=== PATIENT | male | born 1990 | race Caucasian/White ===

== ENCOUNTER 2019-04-23 10:04 | Emergency (ER) | payer OTHER ==
[2019-04-23 10:15] VITALS: BP 131/88
[2019-04-23] MEDS ORDERED: Ketorolac INJ* 30 MG/ML 1 ML VIAL IM ONE (10:29)
--- NOTE | 2019-04-23 10:34 | UC ---
General HPI - HPI Summary HPI Summary: Here with Father - Patient has bipolar disorder. He lives with his dad but independent of ADLs. States he has had issues with diffuse headache over the past month. Headache all over and radiates to his cheeks and jaw on both sides. States he is having dental issues and is planning to see a dentist for this. States pain fluctuates throughout the day where he is fine then it is terrible. has photophobia and phonophobia sometimes. Has been taking tylenol as needed with no improvement. denies any sinus congestion or allergy symptoms. No fever. No N/V/. No URI symptoms. No numbness or tingling. No vision changes. Meds; reviewed. Patient only got 4 hours of sleep. Often sleeps from 8-1 then is up till about 5 am then sleeps again - History of Current Complaint Chief Complaint: UCHeadache Stated Complaint: HEADACHE JAW/NECK PAIN Time Seen by Provider: 04/23/19 10:08 Pain Intensity: 7 - Allergy/Home Medications Allergies/Adverse Reactions: Allergies Allergy/AdvReac Type Severity Reaction Status Date / Time No Known Allergies Allergy Verified 04/23/19 10:15 Home Medications: Home Medications FLUoxetine CAP* [PROzac CAP*] 40 mg PO DAILY 04/23/19 [History Confirmed ] Levothyroxine TAB* [Synthroid TAB*] 75 mcg PO DAILY 04/23/19 [History Confirmed 04/23/19] [place] Carbonate ER TAB* 450 mg PO BID 04/23/19 [History Confirmed 04/23/19] QUEtiapine TAB* [Seroquel 300 MG TAB*] 300 mg PO BID 04/23/19 [History Confirmed 04/23/19] Zolpidem TAB* [Ambien TAB*] 10 mg PO BEDTIME PRN 04/23/19 [History Confirmed ] clonazePAM TAB(*) [KlonoPIN TAB(*)] 2 mg PO TID PRN 04/23/19 [History Confirmed 04/23/19] PMH/Surg Hx/FS Hx/Imm Hx Previously Healthy: Yes - Surgical History Surgical History: Yes Surgery Procedure, Year, and Place: [email or web address] 02/2019 - Social History Alcohol Use: None Substance Use Type: None Smoking Status (MU): Heavy Every Day Tobacco Smoker Type: Cigarettes Amount Used/How Often: 1/2 ppd Review of Systems All Other Systems Reviewed And Are Negative: Yes Physical Exam Triage Information Reviewed: Yes Appearance: Well-Appearing Vital Signs: Initial Vital Signs Temp 98.1 F 04/23/19 10:09 Pulse 65 04/23/19 10:09 Resp 16 04/23/19 10:09 BP 131/88 04/23/19 10:09 Pulse Ox 100 04/23/19 10:09 Vital Signs Reviewed: Yes ENT: Positive: Normal ENT inspection Neck: Positive: Supple Respiratory: Positive: Lungs clear Cardiovascular: Positive: RRR, No Murmur Neurological: Positive: Alert Psychological: Positive: Normal Response To Family Skin Exam: Normal Course/Dx - Course Course Of Treatment: This is a 28 year old with PMhx of bipolar disorder here with a headache Assessment Toradol 30 mg IM given x 1 Most likely migraine - less likely neurologic like tic delareux Plan Recommend management for migraine type headache Recommend ibuprofen 800 mg every 6 -8 hours - take with food Recommend follow up with the dentist If symptoms persist or worsen, recommend further evaluation with PCP or return to urgent care Recommend improvement in sleep hygiene - Diagnoses Provider Diagnosis: Migraine headache Discharge - Sign-Out/Discharge Documenting (check all that apply): Patient Departure All imaging exams completed and their final reports reviewed: No Studies - Discharge Plan Condition: Fair Disposition: HOME Patient Education Materials: Migraine Headache (ED) Additional Instructions: Recommend management for migraine type headache Recommend ibuprofen 800 mg every 6 -8 hours - take with food Recommend follow up with the dentist If symptoms persist or worsen, recommend further evaluation with PCP or return to urgent care Recommend improvement in sleep hygiene - Billing Disposition and Condition Condition: FAIR Disposition: Home
--- OUTSIDE RECORDS SUMMARY | 2019-04-23 10:38 | XMS REPORT | Continuity of Care Document ---
:1990 External Reference #:[id number] Author Name BradyJohn sanchezie Care Team Providers Name Role Phone Corey Sellers MD Primary Care Physician Unavailable Payers Date Identification Numbers Payment Provider Subscriber Effective: 2016 Policy Number: [id number] Richard Gamez PayID: [id number] [address] [place] [address] Family History Date Family Member(s) Observation Comments General Diabetes Type II General Heart Disease General Hypertension General Stroke General Cancer Father Alive And Well Mother Alive And Well Social History Type Date Description Comments Sex Unknown Marital Status Single Lives With Mother And Father Occupation Disabled Tobacco Use Start: Unknown Light tobacco smoker (10 or fewer cigarettes/day) Smoking Status Reviewed: 04/01/19 Light tobacco smoker (10 or fewer cigarettes/day) Tobacco Use Start: Unknown Never Smoked Cigars Tobacco Use Start: Unknown Never Smoked A Pipe Smokeless Tobacco Never Used Smokeless Tobacco ETOH Use Denies alcohol use Tobacco Use Start: Unknown Light tobacco smoker (10 or fewer cigarettes/day) Allergies, Adverse Reactions, Alerts Description No Known Drug Allergies Medications Active Medications SIG Qnty Indications Ordering Provider Date [place] Carbonate ER 1 tab by mouth Frederick Villalta, 450mg twice daily MD Tablets ER Fluoxetine HCL 1 cap daily by Frederick Villalta, 40mg mouth MD Capsules Levothyroxine Sodium 1 tab daily by Frederick Villalta, 75mcg mouth MD Tablets Zolpidem Tartrate 1 tab by mouth at Frederick Villalta, 10mg bedtime as needed MD Tablets Quetiapine Fumarate 1 tab by mouth Frederick Villalta, 300mg twice daily MD Tablets Clonazepam 1 tab by mouth as Pablo Villaltaard, 2mg Tablets needed MDD 3 MD Omeprazole 1 cap daily by Corey Sellers, 40mg Capsules DR ashkan FRIEDMAN Vital Signs Date Vital Result Comment 04/01/2019 1:52pm Height 73 inches 6'1" Weight 180.00 lb Heart Rate 84 /min BP Systolic Sitting 126 mmHg BP Diastolic Sitting 80 mmHg Respiratory Rate 12 /min Pain Level 0 BMI (Body Mass Index) 23.7 kg/m2
== END 2019-04-23 10:42 | disposition home or self-care (01) ==
LOC: UCCORT 10:04
DX: G43.909 Migraine, unspecified, not intractable, without status migrainosus (principal); F31.9 Bipolar disorder, unspecified; F17.210 Nicotine dependence, cigarettes, uncomplicated
CPT/HCPCS: 96372; 99201; G0463; J1885

== ENCOUNTER 2019-07-07 23:05 | Emergency (ER) | payer OTHER ==
--- OUTSIDE RECORDS SUMMARY | 2019-07-07 23:15 | XMS REPORT | Continuity of Care Document ---
:1990 External Reference #:[id number] Author Name Corey Sellers (transmitted by agent of provider Beatrice Ho) Address [address] [place] [address] Care Team Providers Name Role Phone Corey Sellers MD - Internal Medicine Care Team Information Ship Mate Problems Description No Information Available Social History Type Date Description Comments Sex Unknown Tobacco Use Start: Unknown Patient is a current smoker, smokes every day Allergies, Adverse Reactions, Alerts Description No Known Drug Allergies Medications Active Medications SIG Qnty Indications Ordering Date Provider Omeprazole 1 by mouth every 90caps K21.9 Corey Sellers 06/04/[address] Alprazolam ER 1 tablet as needed Unknown 2mg Tablets ER 24HR Quetiapine Fumarate 2 tablets twice a Unknown day 300mg Tablets Zolpidem Tartrate 1 tab by mouth Unknown 10mg every night at Tablets bedtime as needed [place] Carbonate ER one tablet every 12 Unknown hours 450mg Tablets ER Fluoxetine HCL 1 by mouth every Unknown 40mg day Capsules Advil as needed Unknown 200mg Capsules Levothyroxine Sodium 1 by mouth every Unknown day on empty 100mcg Tablets stomach, no other medications at the same time Immunizations Description No Information Available Vital Signs Date Vital Result Comment 06/24/2019 11:15am BP Systolic 110 mmHg BP Diastolic 68 mmHg Heart Rate 75 /min Respiratory Rate 18 /min Height 72 inches 6'0" Weight 190.00 lb BMI (Body Mass Index) 25.8 kg/m2 O2 % BldC Oximetry 97 % 03/12/2019 11:55am BP Systolic 122 mmHg BP Diastolic 78 mmHg Height 72 inches 6'0" Weight 181.00 lb BMI (Body Mass Index) 24.5 kg/m2 Results Test Date Facility Test Result H/L Range Note General Health 06/18/2019 [facility] TSH 6.33 mIU/L High 0.40-4.50 1 [facility] [address] [facility] [address] [phone] T4,Free 0.8 ng/dL 0.8-1.8 2 CBC W/ Diff & PLT 06/18/2019 [facility] WBC 8.2 thous/L 3.8-10.8 [address] [facility] [place] [address] [phone] RBC 4.71 mill/L 4.20-5.80 Hemoglobin 13.1 g/dL Low 13.2-17.1 Hematocrit 41.0 % 38.5-50.0 MCV 87.0 FL 80.0-100.0 MCH 27.8 pg 27.0-33.0 MCHC 32.0 g/dL 32.0-36.0 RDW 12.8 % 11.0-15.0 Platelet Count 208 thous/L 140-400 MPV 10.5 FL 7.5-12.5 Neutrophils,Absolute 5020 cells/L 0280-8612 Bands,Absolute PENDING Metamyelocytes,Absolute PENDING Myelocytes,Absolute PENDING Promyelocytes,Absolute PENDING Lymphocytes,Absolute 2150 cells/L 850-3900 Monocytes,Absolute 460 cells/L 200-950 Eosinophils,Absolute 470 cells/L 15-500 Basophils,Absolute 50 cells/L 0-200 Blast Cells,Absolute PENDING Nucleated RBC,Absolute PENDING Total Neutrophils,% 61.6 % 40-75 Bands,% PENDING Metamyelocytes,% PENDING Myelocytes,% PENDING Promyelocytes,% PENDING Total Lymphocytes,% 26.4 % 12-47 Reactive Lymphocytes PENDING Monocytes,% 5.6 % 4-12 Eosinophils,% 5.8 % High 0-4 Basophils,% 0.6 % 0-1 3 Blasts,% PENDING Nucleated RBC PENDING Comment PENDING CMP W/GFR 06/18/2019 [facility] Sodium 138 mmol/L 135-[address] [place], [place] [id number] [phone] Potassium 4.1 mmol/L 3.5-5.3 Chloride 107 mmol/L 98-110 Carbon Dioxide 25 mmol/L 20-32 4 Calcium 9.5 mg/dL 8.6-10.3 Alkaline Phosphatase 74 U/L 40-115 Ast 16 U/L 10-40 Alt 25 U/L 9-46 Bilirubin,Total 0.7 mg/dL 0.2-1.2 Glucose 96 mg/dL 65-99 5 Urea Nitrogen (BUN) 9 mg/dL 7-25 Creatinine 1.15 mg/dL 0.60-1.35 BUN/Creatinine Ratio 8.2 6-22 Protein,Total 6.4 g/dL 6.1-8.1 Albumin 4.5 g/dL 3.6-5.1 Globulin,Calculated 1.9 g/dL 1.9-3.7 A/G Ratio 2.2 1.0-2.5 Egfr Non-Afr. [place] 84 ML/MIN/1.73M2 > Or = 60 Egfr 98 ML/MIN/1.73M2 > Or = 60 General Health [facility] 01/06/2019 [facility] TSH 0.89 mIU/L 0.40- 4.50 [address] [place], [place] [id number] [phone] T4,Free 0.9 ng/dL 0.8-1.8 CBC W/ Diff & PLT 01/06/2019 [facility] WBC 8.9 thous/L 3.8-10.8 [address] [place] [address] [phone] RBC 5.23 mill/L 4.20-5.80 Hemoglobin 14.2 g/dL 13.2-17.1 Hematocrit 44.9 % 38.5-50.0 MCV 85.9 FL 80.0-100.0 MCH 27.2 pg 27.0-33.0 MCHC 31.7 g/dL Low 32.0-36.0 RDW 13.7 % 11.0-15.0 Platelet Count 195 thous/L 140-400 MPV 10.3 FL 7.5-12.5 Neutrophils,Absolute 6450 cells/L 2402-6012 Bands,Absolute PENDING Metamyelocytes,Absolute PENDING Myelocytes,Absolute PENDING Promyelocytes,Absolute PENDING Lymphocytes,Absolute 1480 cells/L 850-3900 Monocytes,Absolute 360 cells/L 200-950 Eosinophils,Absolute 540 cells/L High 15-500 Basophils,Absolute 20 cells/L 0-200 Blast Cells,Absolute PENDING Nucleated RBC,Absolute PENDING Total Neutrophils,% 73 % 40-75 Bands,% PENDING Metamyelocytes,% PENDING Myelocytes,% PENDING Promyelocytes,% PENDING Total Lymphocytes,% 17 % 12-47 Reactive Lymphocytes PENDING Monocytes,% 4 % 4-12 Eosinophils,% 6 % High 0-4 Basophils,% 0 % 0-1 6 Blasts,% PENDING Nucleated RBC PENDING Comment PENDING CMP W/GFR 01/06/2019 [facility] Sodium 138 mmol/L 135-146 [address] [place] [address] [phone] Potassium 4.4 mmol/L 3.5-5.3 Chloride 104 mmol/L 98-110 Carbon Dioxide 31 mmol/L 20-32 7 Calcium 9.9 mg/dL 8.6-10.3 Alkaline Phosphatase 112 U/L 40-115 Ast 24 U/L 10-40 Alt 26 U/L 9-46 Bilirubin,Total 1.0 mg/dL 0.2-1.2 Glucose 81 mg/dL 65-99 8 Urea Nitrogen (BUN) 8 mg/dL 7-25 Creatinine 1.21 mg/dL 0.60-1.35 BUN/Creatinine Ratio 6.4 6-22 Protein,Total 6.8 g/dL 6.1-8.1 Albumin 4.6 g/dL 3.6-5.1 Globulin,Calculated 2.2 g/dL 1.9-3.7 A/G Ratio 2.1 1.0-2.5 Egfr Non-Afr. [place] 80 ML/MIN/1.73M2 > Or = 60 Egfr 93 ML/MIN/1.73M2 > Or = 60 Lipid Panel 01/06/2019 [facility] Cholesterol 174 mg/dL <199 [address] [place] [address] [phone] HDL Cholesterol 27 mg/dL Low >40 Cholesterol/HDL Ratio 6.4 CALC High <5.0 LDL Chol,Calculated 123 mg/dL High 0-100 9 Triglycerides 128 mg/dL <150 Non-HDL Cholesterol 147 mg/dL High <130 10 Laboratory test 01/06/2019 [facility] [place],Serum 0.9 mmol/L 0.6-1.2 11 finding [address] [place] [address] [phone] 1 FASTING 2 *COPY SENT REQUESTED TO MIRELLA MEMBER *FAX SENT REQUESTED TO [phone] 3 Relative blood cell counts (%) should be compared with absolute cell counts (cells/mcL). Relative counts may not be clinically meaningful if the absolute count of one or more cell type is decreased. Reference ranges for relative cell counts derived from: A Manual of Laboratory and Diagnostics Tests, 9th Ed, Radha Hansel & Espinoza, 2015. Pediatric Reference Intervals, 7th Ed, [employer], 2011. 4 Reference range for high altitude clients: 18-30 mmol/L 5 GLUCOSE REFERENCE RANGE BASED ON FASTING SPECIMEN. 6 Relative blood cell counts (%) should be compared with absolute cell counts (cells/mcL). Relative counts may not be clinically meaningful if the absolute count of one or more cell type is decreased. Reference ranges for relative cell counts derived from: A Manual of Laboratory and Diagnostics Tests, 9th Ed, Radha Hansel & Espinoza, 2015. Pediatric Reference Intervals, 7th Ed, [employer], 2011. 7 Reference range for high altitude clients: 18-30 mmol/L 8 GLUCOSE REFERENCE RANGE BASED ON FASTING SPECIMEN. 9 LDL-C is now calculated using the Errol-Bel calculation, which is a validated novel method providing better accuracy than the Friedewald equation in the estimation of LDL-C. Errol GONZALES et al.DUSTY.2013;310(19):7460-1570 Desirable range <100 mg/dL for primary prevention; <70 mg/dL for patients with CHD or diabetic patients with >or= 2 CHD risk factors. For additional information, please refer to http://education.[employer]/faq/EYD694(This link is being provided for informational/educational purposes only.) 10 For patients with diabetes plus 1 major ASCVD risk factor, treating to a non-HDL-C goal of <100 mg/dL (LDL-C of <70 mg/ dL) is considered a therapeutic option. 11 *COPY SENT REQUESTED TO MIRELLA SANTOS *FAX SENT REQUESTED TO [phone] Procedures Date Code Description Status 06/18/2019 98631 Spirometry Graphic Record/Max Voluntary Vent Completed Medical Devices Description No Information Available Encounters Type Date Location Provider Dx Diagnosis Office Visit 03/12/2019 11:50a Main Office Joseph Sellersl E03.9 Hypothyroidism, unspecified K21.9 Gastro-esophageal reflux disease without esophagitis F17.200 Nicotine dependence, unspecified, uncomplicated F31.89 Other bipolar disorder K80.00 Calculus of gallbladder w acute cholecyst w/o obstruction J44.9 Chronic obstructive pulmonary disease, unspecified Assessments Date Code Description Provider 06/18/2019 R06.02 Shortness of breath Aceog Corey 06/18/2019 J44.9 Chronic obstructive pulmonary disease, unspecified Gauss, Corey 06/18/2019 R05 Cough Marlo, Corey 03/12/2019 E03.9 Hypothyroidism, unspecified Gauss, Corey 03/12/2019 K21.9 Gastro-esophageal reflux disease without esophagitis Marlo Corey 03/12/2019 F17.200 Nicotine dependence, unspecified, uncomplicated Gaog, Corey 03/12/2019 F31.89 Other bipolar disorder Marlo, Corey 03/12/2019 K80.00 Calculus of gallbladder with acute cholecystitis Marlo Corey without obstruction 03/12/2019 J44.9 Chronic obstructive pulmonary disease, unspecified Gauss Corey Plan of Treatment 03/12/2019 - Joseph SellerslE03.9 Hypothyroidism, mhgfakauwhfQ15.9 Gastro- esophageal reflux disease without esophagitisComments:Discussed role of diet and excersize and weight reduction and contribution of common exacerbating factors/ substances such as stress/fatigue/caffeine/nicotine/chocolate/ foods.Signs and symptoms of disease progression discussed as well as necessity to promptly report changes or worsening and the need for medication compliance. Periodic measurement and follow up for serum Magnesium levels while on PPI.F17.200 Nicotine dependence, unspecified, uncomplicatedComments:Discussed health effects and consequences of nicotine and tobacco. Discussed quitting strategies andaids to withdrawal including seminars, classes, hypnosis, medications. Offered encouragement to change and benefits to be expected in health overall and specific conditions that are effected. Literature and follow up planned.Discussed health effects and consequences of nicotine and tobacco. Discussed quitting strategies and aids to withdrawal including seminars, classes , hypnosis, medications. Offered encouragement to change and benefits to be expected in health overall and specific conditions that are effected. Literature and follow up planned. Discussion time less than 10 medonrrU80.89 Other bipolar fysvpzocS80.00 Calculus of gallbladder with acute cholecystitis without ffekrvrkpwmA26.9 Chronic obstructive pulmonary disease, unspecifiedComments:Discussed importance of excersize and avoidance of all smoke. Enviromental factors that can spark exacerbations reviewed. The necessity of reporting any changes in condition, early intervention in exacerbations and proper useand the importance of compliance with medications. Reports if applicable of home care providers, and equipment suppliers and Respiratory Therapy reviewed. Functional Status Description No Information Available Mental Status Description No Information Available Referrals Description No Information Available
--- OUTSIDE RECORDS SUMMARY | 2019-07-07 23:15 | XMS REPORT | Continuity of Care Document ---
:1990 External Reference #:[id number] Author Name Corey Sellers (transmitted by agent of provider Naty Garvey) Address [address] [place] [address] Care Team Providers Name Role Phone Corey Sellers MD - Internal Medicine Care Team Information Order Analyst Problems Description No Information Available Social History [...] every night at Tablets bedtime as needed [place] Carbonate ER one tablet every 12 Unknown hours 450mg Tablets ER Fluoxetine HCL 1 by mouth every Unknown 40mg day Capsules Advil as needed Unknown 200mg Capsules Levothyroxine Sodium 1 by mouth every 90tabs Corey Sellers day on empty 100mcg Tablets stomach, no [...] mIU/L High 0.40-4.50 1 [facility] [address] [facility] [place] [address] [phone] T4,Free 0.8 ng/dL 0.8-1.8 2 CBC W/ Diff & PLT 06/18/2019 [facility] WBC 8.2 thous/L 3.8-10.8 [address] [facility] [place] [address] [phone] RBC 4.71 mill/L 4.20-5.80 Hemoglobin 13.1 g/dL Low 13.2-17.1 Hematocrit 41.0 % 38.5-50.0 MCV 87.0 FL 80.0-100.0 MCH 27.8 pg 27.0-33.0 MCHC 32.0 g/dL 32.0-36.0 RDW 12.8 % 11.0-15.0 Platelet Count 208 thous/L 140-400 MPV 10.5 FL 7.5-12.5 Neutrophils,Absolute 5020 cells/L 4318-3999 Bands,Absolute PENDING Metamyelocytes,Absolute PENDING Myelocytes,Absolute PENDING Promyelocytes,Absolute [...] [facility] Sodium 138 mmol/L 135-146 [address] [facility] [place] [address] [phone] Potassium 4.1 mmol/L 3.5-5.3 Chloride 107 mmol/L [...] 1.9-3.7 A/G Ratio 2.2 1.0-2.5 Egfr Non-Afr. [place] 84 ML/MIN/1.73M2 > Or = 60 Egfr 98 ML/MIN/1.73M2 > Or = 60 General Health Panel [facility] 01/06/2019 [facility] TSH 0.89 mIU/L 0.40- 4.[address] [place] [address] [phone] T4,Free 0.9 ng/dL 0.8-1.8 CBC W/ Diff & PLT 01/06/2019 [facility] WBC 8.9 thous/L 3.8-10.[address] [place] [address] [phone] RBC 5.23 mill/L 4.20-5.80 Hemoglobin 14.2 g/dL 13.2-17.1 Hematocrit 44.9 % 38.5-50.0 MCV 85.9 FL 80.0-100.0 MCH 27.2 pg 27.0-33.0 MCHC 31.7 g/dL Low 32.0-36.0 RDW 13.7 % 11.0-15.0 Platelet Count 195 thous/L 140-400 MPV 10.3 FL 7.5-12.5 Neutrophils,Absolute 6450 cells/L 8780-1185 Bands,Absolute PENDING Metamyelocytes,Absolute PENDING Myelocytes,Absolute PENDING Promyelocytes,Absolute [...] [facility] Sodium 138 mmol/L 135-[address] [place] [address] [phone] Potassium 4.4 mmol/L 3.5-5.3 Chloride 104 mmol/L [...] 1.9-3.7 A/G Ratio 2.1 1.0-2.5 Egfr Non-Afr. [place] 80 ML/MIN/1.73M2 > Or = 60 Egfr 93 ML/MIN/1.73M2 > Or = 60 Lipid Panel 01/06/2019 [facility] Cholesterol 174 mg/dL <199 [address] [place] [address] [phone] HDL Cholesterol 27 mg/dL Low >40 Cholesterol/HDL Ratio 6.4 CALC High <5.0 LDL Chol,Calculated 123 mg/dL High 0-100 9 Triglycerides 128 mg/dL <150 Non-HDL Cholesterol 147 mg/dL High <130 10 Laboratory test 01/06/2019 [facility] [place],Serum 0.9 mmol/L 0.6-1.2 11 finding [address] [place] [address] [phone] FASTING 2 *COPY SENT REQUESTED TO MIRELLA MEMBER *FAX SENT REQUESTED TO [phone] 3 Relative blood cell counts (%) should [...] 9 LDL-C is now calculated using the Errol-Staples calculation, which is a validated novel method providing better accuracy than the Friedewald equation in the estimation of LDL-C. Errol GONZALES et al.DUSTY.2013;310(19):8590-9040 Desirable range <100 mg/dL for primary prevention; <70 mg/dL for patients with CHD or diabetic patients with >or= 2 CHD risk factors. For additional information, please refer to http://education.Company/faq/PBN408(This link is being provided for informational/educational purposes only.) 10 For patients with diabetes plus 1 major ASCVD risk factor, treating to a non-HDL-C goal of <100 mg/dL (LDL-C of <70 mg/ dL) is considered a therapeutic option. 11 *COPY SENT REQUESTED TO MIRELLA SANTOS *FAX SENT REQUESTED TO [phone] Procedures Date Code Description Status 06/24/2019 45481 PFT Evaluation Completed 06/18/2019 36314 Spirometry Graphic Record/Max Voluntary Vent Completed Medical Devices Description No Information Available Encounters Type Date Location Provider Dx Diagnosis Office Visit 06/24/2019 11:15a Main Office Gauss, Corey K21.9 Gastro- esophageal reflux disease without esophagitis E03.9 Hypothyroidism, unspecified F31.89 Other bipolar disorder F17.200 Nicotine dependence, unspecified, uncomplicated Office Visit 03/12/2019 11:50a Main Office Gauss, Corey E03.9 Hypothyroidism, unspecified K21.9 Gastro-esophageal reflux disease without esophagitis F17.200 Nicotine dependence, unspecified, uncomplicated F31.89 Other bipolar disorder K80.00 Calculus of gallbladder w acute cholecyst w/o obstruction J44.9 Chronic obstructive pulmonary disease, unspecified Assessments Date Code Description Provider 06/24/2019 K21.9 Gastro-esophageal reflux disease without esophagitis Gauss , Corey 06/24/2019 E03.9 Hypothyroidism, unspecified Gauss, Corey 06/24/2019 F31.89 Other bipolar disorder Gauss, Corey 06/24/2019 F17.200 Nicotine dependence, unspecified, uncomplicated Gauss, Corey 06/18/2019 R06.02 Shortness of breath Gauss, Corey 06/18/2019 J44.9 Chronic obstructive pulmonary disease, unspecified Gauss, Corey 06/18/2019 R05 Cough Gauss, Corey 03/12/2019 E03.9 Hypothyroidism, unspecified Gauss, Corey 03/12/2019 K21.9 Gastro-esophageal reflux disease without esophagitis Gauss , Corey 03/12/2019 F17.200 Nicotine dependence, unspecified, uncomplicated Gauss, Corey 03/12/2019 F31.89 Other bipolar disorder Gauss, Corey 03/12/2019 K80.00 Calculus of gallbladder with acute cholecystitis Gauss, Corey without obstruction 03/12/2019 J44.9 Chronic obstructive pulmonary disease, unspecified Corey Sellers Plan of Treatment Future Appointment(s):10/10/2019 8:15 am - Nurse at Main Dzmrvu7210/20/2019 11: 45 am - Corey Sellers at Main Nigprl1906/24/2019 - Corey SellersK21.9 Gastro- esophageal reflux disease without esophagitisComments:Discussed role of diet and excersize and weight reduction and contribution of common exacerbating factors/ substances such as stress/fatigue/caffeine/nicotine/chocolate/ foods.Signs and symptoms of disease progression discussed as well as necessity to promptly report changes or worsening and the need for medication compliance. Periodic measurement and follow up for serum Magnesium levels while on PPI.E03.9 Hypothyroidism, ugzagbauunnU89.89 Other bipolar wfkxnfuwD88.200 Nicotine dependence, unspecified, uncomplicatedComments:Discussed health effects and [...] up planned. Discussion time less than 10 minutes Functional Status Description No Information Available Mental Status Description No Information Available Referrals Description No Information Available
[2019-07-07] MEDS ORDERED: clonazePAM TAB(*) 1 MG PO ONE (23:40)
--- NOTE | 2019-07-07 23:44 | ED ---
Psychiatric Complaint - HPI Summary HPI Summary: 29 year old male presents with anxiety today. He states that has had a day long panic attack. He states that took his last Klonopin last night. States it feels like his typical panic attack. States he feels some tingling in his extremities. He denies any headache or vomiting. He hasn't taking anything for his symptoms. He says this happened before. He states he doesn't know any triggers a cause of panic attack. He states he is just unable to get hold of the symptoms. He has a refill for Klonopin a couple days. Has history of anxiety and bipolar. Denies any suicidal ideation or homicide. Has no plan. - History Of Current Complaint Chief Complaint: EDPsychosocial Time Seen by Provider: 07/07/19 23:29 - Allergies/Home Medications Allergies/Adverse Reactions: Allergies Allergy/AdvReac Type Severity Reaction Status Date / Time No Known Allergies Allergy Verified 07/07/19 23:09 Home Medications: Home Medications Omeprazole 40 mg PO DAILY 07/07/19 [History Confirmed 07/07/19] PMH/Surg Hx/FS Hx/Imm Hx Endocrine/Hematology History: Denies: Hx Anticoagulant Therapy Respiratory History: Denies: Hx Asthma - Surgical History Surgery Procedure, Year, and Place: cholecystecomy 02/2019 Infectious Disease History: No Infectious Disease History: Denies: Traveled Outside the [place] in Last 30 Days - Family History Known Family History: Positive: Non-Contributory - Social History Alcohol Use: Occasionally Substance Use Type: Reports: None Smoking Status (MU): Heavy Every Day Tobacco Smoker Type: Cigarettes Amount Used/How Often: 1/2 ppd Review of Systems Negative: Fever Positive: Palpitations. Negative: Chest Pain Negative: Shortness Of Breath Positive: Nausea Positive: Anxious All Other Systems Reviewed And Are Negative: Yes Physical Exam Triage Information Reviewed: Yes Vital Signs On Initial Exam: Initial Vitals Temp Pulse Resp BP Pulse Ox 97.8 F 100 20 117/80 99 07/07/19 23:06 07/07/19 23:06 07/07/19 23:06 07/07/19 23:06 07/07/19 23:06 Vital Signs Reviewed: Yes Appearance: Positive: Well-Appearing Skin: Positive: Warm, Dry Head/Face: Positive: Normal Head/Face Inspection Eyes: Positive: Normal, Conjunctiva Clear ENT: Positive: Pharynx normal Respiratory/Lung Sounds: Positive: Clear to Auscultation, Breath Sounds Present Cardiovascular: Positive: Normal, RRR Abdomen Description: Positive: Nontender, Soft Bowel Sounds: Positive: Present Musculoskeletal: Positive: Normal Neurological: Positive: Normal Psychiatric: Positive: Anxious Diagnostics - Vital Signs Vital Signs Temp Pulse Resp BP Pulse Ox 07/07/19 23:06 97.8 F 100 20 117/80 99 - Laboratory Result Diagrams: 07/08/19 00:10 07/08/19 00:10 Lab Statement: Any lab studies that have been ordered have been reviewed, and results considered in the medical decision making process. - EKG No standard instances Cardiac Rate: NL EKG Rhythm: Sinus Rhythm Summary of EKG Findings: sinus rhythm Re-Evaluation - Re-Evaluation First Eval Re-Evaluation Time: 01:25 Change: Improved Comment: feels better, symptoms have resolved Course/Dx - Course Course Of Treatment: 29 year old male presents with anxiety today. He states that has had a day long panic attack. He states that took his last Klonopin last night. States it feels like his typical panic attack. States he feels some tingling in his extremities. He denies any headache or vomiting. He hasn' t taking anything for his symptoms. He says this happened before. He states he doesn't know any triggers a cause of panic attack. He states he is just unable to get hold of the symptoms. He has a refill for Klonopin a couple days. Has history of anxiety and bipolar. Denies any suicidal. Has no plan. On exam patient is anxious. lungs clear to auscultation. Heart regular rate and rhythm. Abdomen soft nontender. gave dose of klonipin here and symptoms improved. wbc normal. ekg sinus rhythm. wbc normal. electrolytes normal. discussed should follow up with primary if confusion continues. told follow up with psychiatry. discussed can not give script for klonipin as had thirty day supply on 06/10 filled. patient understand and agrees with plan. - Differential Dx/Clinical Impression Differential Diagnosis/HQI/PQRI: Positive: Anxiety, Depression, Suicidal Ideation Provider Diagnosis: Anxiety Discharge ED - Sign-Out/Discharge Documenting (check all that apply): Patient Departure Patient Received Moderate/Deep Sedation with Procedure: No - Discharge Plan Condition: Good Disposition: HOME Patient Education Materials: Anxiety (ED) Referrals: Corey Sellers MD [Primary Care Provider] - Additional Instructions: follow up with psychiatry follow up with primary if symptoms continue Return to ED if develop any new or worsening symptoms - Billing Disposition and Condition Condition: GOOD Disposition: Home
[2019-07-08 00:17] LABS: ABS Eosinophils 0.2 10^3/ul (0-0.6); ABS Lymphocytes 1.3 10^3/ul (1.0-4.8); ABS Monocytes 0.4 10^3/ul (0-0.8); ABS Neutrophils 4.4 10^3/ul (1.5-7.7); Eosinophil % 2.7 %; Hematocrit 41 % (42-52); Hemoglobin 13.2 g/dL (14.0-18.0); Lymphocyte % 20.2 %; Mean Corpuscular HGB Conc 33 g/dL (31-36); Mean Corpuscular Hemoglobin 28 pg (27-31); Mean Corpuscular Volume 86 fL (80-94); Mean Platelet Volume 8.1 fL (7.4-10.4); Platelet Count 165 10^3/uL (150-450); Red Blood Count 4.72 10^6 /uL (4.18-5.48); Red Cell Distribution Width 14 % (10-15); White Blood Count 6.3 10^3/uL (3.5-10.8)
[2019-07-08 00:34] LABS: ALT 64 U/L (7-52); AST 30 U/L (13-39); Albumin 4.2 g/dL (3.2-5.2); Alkaline Phosphatase 87 U/L (34-104); Anion Gap 6 mmol/L (2-11); BUN/Creatinine Ratio 6.4 (8-20); Blood Urea Nitrogen 7 mg/dL (6-24); CO2 Carbon Dioxide 26 mmol/L (22-32); Calcium 8.6 mg/dL (8.6-10.3); Chloride 107 mmol/L (101-111); EGFR African American 94.5 (>60); EGFR Non-African American 78.1 (>60); Globulin 2.1 g/dL (2-4); Glucose 111 mg/dL (70-100); Potassium 4.3 mmol/L (3.5-5.0); Sodium 139 mmol/L (135-145); Total Protein 6.3 g/dL (6.4-8.9)
[2019-07-08 00:53] LABS: Acetaminophen < 15 mcg/mL; Alcohol < 10 mg/dL (<10); Salicylate < 2.50 mg/dL (<30)
[2019-07-08 01:08] LABS: TSH (Thyroid Stimulating Horm) 3.89 mcIU/mL (0.34-5.60)
[2019-07-08 01:43] VITALS: BP 117/82
== END 2019-07-08 01:40 | disposition home or self-care (01) ==
LOC: ED 23:05
DX: F41.9 Anxiety disorder, unspecified (principal); F17.210 Nicotine dependence, cigarettes, uncomplicated; Z79.899 Other long term (current) drug therapy
CPT/HCPCS: 36415; 80053; 80320; 80329; 84443; 84484; 85025; 93005; 99284; A9270-GY; G0480

== ENCOUNTER 2020-01-16 03:03 | Emergency (ER) | payer OTHER ==
--- OUTSIDE RECORDS SUMMARY | 2020-01-16 03:14 | XMS REPORT | Continuity of Care Document ---
:1990 External Reference #:[id number] Author Name Corey Sellers (transmitted by agent of provider Tasia Tsai) Address [address] [place] [address] Care Team Providers Name Role Phone Corey Sellers MD - Internal Medicine Care Team Information Salv[employer] [phone] Problems Description No Information Available Social History Type Date Description Comments Sex Unknown Tobacco Use Start: Unknown Patient is a current smoker, smokes every day Allergies, Adverse Reactions, Alerts Description No Known Drug Allergies Medications Active Medications SIG Qnty Indications Ordering Provider Date Atorvastatin Calcium 1 by mouth every 90tabs E78.2 Corey Sellers 07/21/2019 20mg day Tablets Levothyroxine Sodium 1 by mouth every 90tabs Corey Sellers 07/21/2019 day on empty 112mcg Tablets stomach Omeprazole 1 by mouth every 90caps K21.9 Corey Sellers 06/04/[address] Alprazolam ER 1 tablet as Unknown 2mg Tablets needed ER 24HR Quetiapine Fumarate 2 tablets twice Unknown 300mg a day Tablets Zolpidem Tartrate 1 tab by mouth Unknown 10mg every night at Tablets bedtime as needed [place] Carbonate ER one tablet every Unknown 12 hours 450mg Tablets ER Fluoxetine HCL 1 by mouth every Unknown 40mg day Capsules Advil as needed Unknown 200mg Capsules Immunizations CPT Code Status Date Vaccine Lot # [id number] Given 07/21/2019 Influenza Virus (Quadrivalent)Splitvirus 3 [id number] Years Of Age And Older [address] Given 07/21/2019 Influenza Virus Vaccine, Quadrivalent, Split, Preservative Free Vital Signs Date Vital Result Comment 11/18/2019 12:03pm BP Systolic 134 mmHg BP Diastolic 78 mmHg Heart Rate 92 /min Height 72 inches 6'0" Weight 212.00 lb BMI (Body Mass Index) 28.7 kg/m2 O2 % BldC Oximetry 98 % 10/20/2019 12:14pm BP Systolic 126 mmHg BP Diastolic 74 mmHg Heart Rate 96 /min Height 72 inches 6'0" Weight 212.00 lb BMI (Body Mass Index) 28.7 kg/m2 O2 % BldC Oximetry 97 % Results Test Acquired Date Facility Test Result H/L Range Note General Health 11/14/2019 [facility] TSH 2.96 mIU/L Normal 0.40- 4.50 1 Panel [facility] [address] [place] [address] [phone] T4, Free 1.2 ng/dL Normal 0.8-1.8 CBC (Includes 11/14/2019 [facility] White 6.9 Thousand/uL Normal 3.8-10.8 Diff/PLT) [facility] [place] [address] Count Red Blood Cell Count 5.03 Million/uL Normal 4.20-5.80 Hemoglobin 14.5 g/dL Normal 13.2-17.1 Hematocrit 43.3 % Normal 38.5-50.0 MCV 86.1 fL Normal 80.0-100.0 MCH 28.8 pg Normal 27.0-33.0 MCHC 33.5 g/dL Normal 32.0-36.0 RDW 14.5 % Normal 11.0-15.0 Platelet Count 189 Thousand/uL Normal 140-400 MPV 10.2 fL Normal 7.5-12.5 Absolute Neutrophils 4602 cells/uL Normal 2794-9797 Absolute Lymphocytes 1504 cells/uL Normal 850-3900 Absolute Monocytes 366 cells/uL Normal 200-950 Absolute Eosinophils 380 cells/uL Normal 15-500 Absolute Basophils 48 cells/uL Normal 0-200 Neutrophils 66.7 % Normal 38-80 Lymphocytes 21.8 % Normal 15-49 Monocytes 5.3 % Normal 0-13 Eosinophils 5.5 % Normal 0-8 Basophils 0.7 % Normal 0-2 Comprehensive Metabolic 11/14/2019 [facility] Glucose 88 mg/dL Normal 65-99 2 Panel [address] [place] [address] [phone] Urea Nitrogen (BUN) 11 mg/dL Normal 7-25 Creatinine 1.20 mg/dL Normal 0.60-1.35 eGFR Non-Afr. Guatemalan 80 mL/min/1.73m2 Normal > Or = 60 eGFR 93 mL/min/1.73m2 Normal > Or = 60 BUN/Creatinine Ratio NOT APPLICABLE (calc) 6-22 Sodium 136 mmol/L Normal 135-146 Potassium 4.2 mmol/L Normal 3.5-5.3 Chloride 104 mmol/L Normal 98-110 Carbon Dioxide 24 mmol/L Normal 20-32 Calcium 9.4 mg/dL Normal 8.6-10.3 Protein, Total 7.0 g/dL Normal 6.1-8.1 Albumin 4.5 g/dL Normal 3.6-5.1 Globulin 2.5 g/dL(calc) Normal 1.9-3.7 Albumin/Globulin Ratio 1.8 (calc) Normal 1.0-2.5 Bilirubin, Total 0.6 mg/dL Normal 0.2-1.2 Alkaline Phosphatase 94 U/L Normal 40-115 Ast 22 U/L Normal 10-40 Alt 19 U/L Normal 9-46 Lipid Panel, 11/14/2019 [facility] Cholesterol, Total 275 mg/dL High <200 [facility] [address] [place] [address] [phone] HDL Cholesterol 44 mg/dL Normal >40 Triglycerides 578 mg/dL High <150 3 LDL-Cholesterol (SEE NOTE) mg/dL(calc) 4 Chol/HDLC Ratio 6.3 (calc) High <5.0 Non HDL Cholesterol 231 mg/dL(calc) High <130 5 Laboratory test 11/14/2019 [facility] [place] 0.9 mmol/L Normal 0.6 -1.2 finding [address] [place] [address] [phone] Enhanced PDF Report [id number] PDF IMAGE OFF General Health Panel [facility] 06/18/2019 TSH 6.33 mIU/L High 0.40-4.50 6 T4,Free 0.8 ng/dL 0.8-1.8 7 CBC W/ Diff & PLT 06/18/2019 WBC 8.2 thous/L 3.8-10.8 RBC 4.71 mill/L 4.20-5.80 Hemoglobin 13.1 g/dL Low 13.2-17.1 Hematocrit 41.0 % 38.5-50.0 MCV 87.0 FL 80.0-100.0 MCH 27.8 pg 27.0-33.0 MCHC 32.0 g/dL 32.0-36.0 RDW 12.8 % 11.0-15.0 Platelet Count 208 thous/L 140-400 MPV 10.5 FL 7.5-12.5 Neutrophils,Absolute 5020 cells/L 1469-3876 Bands,Absolute PENDING Metamyelocytes,Absolute PENDING Myelocytes,Absolute PENDING Promyelocytes,Absolute [...] % High 0-4 Basophils,% 0.6 % 0-1 8 Blasts,% PENDING Nucleated RBC PENDING Comment PENDING CMP W/GFR 06/18/2019 Sodium 138 mmol/L 135-146 Potassium 4.1 mmol/L 3.5-5.3 Chloride 107 mmol/L 98-110 Carbon Dioxide 25 mmol/L 20-32 9 Calcium 9.5 mg/dL 8.6-10.3 Alkaline Phosphatase 74 U/L 40-115 Ast 16 U/L 10-40 Alt 25 U/L 9-46 Bilirubin,Total 0.7 mg/dL 0.2-1.2 Glucose 96 mg/dL 65-99 10 Urea Nitrogen (BUN) 9 mg/dL 7-25 Creatinine 1.15 mg/dL 0.60-1.35 BUN/Creatinine Ratio 8.2 6-22 Protein,Total 6.4 g/dL 6.1-8.1 Albumin 4.5 g/dL 3.6-5.1 Globulin,Calculated 1.9 g/dL 1.9-3.7 A/G Ratio 2.2 1.0-2.5 Egfr Non-Afr. Guatemalan 84 ML/MIN/1.73M2 > Or = 60 Egfr 98 ML/MIN/1.73M2 > Or = 60 1 FASTING:YES FASTING: YES 2 Fasting reference interval 3 If a non-fasting specimen was collected, consider repeat triglyceride testing on a fasting specimen if clinically indicated. Mary et al. J. of Clin. Lipidol. 2015;9:129-169. There is increased risk of pancreatitis when the triglyceride concentration is very high (> or = 500 mg/dL, especially if > or = 1000 mg/dL). Mary et al. J. of Clin. Lipidol. 2015;9:129-169. 4 LDL cholesterol not calculated. Triglyceride levels greater than 400 mg/dL invalidate calculated LDL results. Reference range: <100 Desirable range <100 mg/dL for primary prevention; <70 mg/dL for patients with CHD or diabetic patients with > or = 2 CHD risk factors. LDL-C is now calculated using the Errol-Staples calculation, which is a validated novel method providing better accuracy than the Friedewald equation in the estimation of LDL-C. Errol SS et al. DUSTY. 2013;310(19): 1835-8567 (http://education.[employer].Kenshoo/faq/IAJ142) 5 Non-HDL level > or = 220 is very high and may indicate genetic familial hypercholesterolemia (FH). Clinical assessment and measurement of blood lipid levels should be considered for all first-degree relatives of patients with an FH diagnosis. For patients with diabetes plus 1 major ASCVD risk factor, treating to a non-HDL-C goal of <100 mg/dL (LDL-C of <70 mg/dL) is considered a therapeutic option. 6 FASTING 7 *COPY SENT REQUESTED TO MIRELLA MARTÍNEZ *FAX SENT REQUESTED TO [phone] 8 Relative blood cell counts (%) should be compared with absolute cell counts (cells/mcL). Relative counts may not be clinically meaningful if the absolute count of one or more cell type is decreased. Reference ranges for relative cell counts derived from: A Manual of Laboratory and Diagnostics Tests, 9th Ed, Radha Hansel & Espinoza, 2015. Pediatric Reference Intervals, 7th Ed, [employer], 2011. 9 Reference range for high altitude clients: 18-30 mmol/L 10 GLUCOSE REFERENCE RANGE BASED ON FASTING SPECIMEN. Procedures Date Code Description Status 11/14/2019 18606 Spirometry Graphic Record/Max Voluntary Vent Completed 06/24/2019 38265 PFT Evaluation Completed 06/18/2019 82282 Spirometry Graphic Record/Max Voluntary Vent Completed Medical Devices Description No Information Available Encounters Type Date Location Provider Dx Diagnosis Office Visit 11/18/2019 12:00p Main Office Corey Sellers J44.9 Chronic obstructive pulmonary disease, unspecified E03.9 Hypothyroidism, unspecified K21.9 Gastro-esophageal reflux disease without esophagitis F31.89 Other bipolar disorder F17.200 Nicotine dependence, unspecified, uncomplicated K80.00 Calculus of gallbladder w acute cholecyst w/o obstruction Z00.01 Encounter for general adult medical exam w abnormal findings E78.5 Hyperlipidemia, unspecified Office Visit 10/20/2019 11:45a Main Office Corey Sellers E03.9 Hypothyroidism, unspecified K21.9 Gastro-esophageal reflux disease without esophagitis F31.89 Other bipolar disorder F17.200 Nicotine dependence, unspecified, uncomplicated J44.9 Chronic obstructive pulmonary disease, unspecified K80.00 Calculus of gallbladder w acute cholecyst w/o obstruction Office Visit 07/21/2019 10:15a Main Office Corey Sellers K21.9 Gastro- esophageal reflux disease without esophagitis E03.9 Hypothyroidism, unspecified F31.89 Other bipolar disorder F17.200 Nicotine dependence, unspecified, uncomplicated R06.02 Shortness of breath J44.9 Chronic obstructive pulmonary disease, unspecified K80.00 Calculus of gallbladder w acute cholecyst w/o obstruction E78.2 Mixed hyperlipidemia Z23 Encounter for immunization Office Visit 06/24/2019 11:15a Main Office Corey Sellers K21.9 Gastro- esophageal reflux disease without esophagitis E03.9 Hypothyroidism, unspecified F31.89 Other bipolar disorder F17.200 Nicotine dependence, unspecified, uncomplicated R06.02 Shortness of breath J44.9 Chronic obstructive pulmonary disease, unspecified R05 Cough Assessments Date Code Description Provider 11/18/2019 J44.9 Chronic obstructive pulmonary disease, unspecified Gauss, Corey 11/18/2019 E03.9 Hypothyroidism, unspecified Gauss, Corey 11/18/2019 K21.9 Gastro-esophageal reflux disease without esophagitis Gauss , Ocrey 11/18/2019 F31.89 Other bipolar disorder Gauss, Corey 11/18/2019 F17.200 Nicotine dependence, unspecified, uncomplicated Gauss, Corey 11/18/2019 K80.00 Calculus of gallbladder with acute cholecystitis Gauss, Corey without obstruction 11/18/2019 Z00.01 Encounter for general adult medical examination with Joseph Sellersl abnormal findings 11/18/2019 E78.5 Hyperlipidemia, unspecified Gauss, Corey 11/14/2019 R06.02 Shortness of breath Gauss, Corey 11/14/2019 J44.9 Chronic obstructive pulmonary disease, unspecified Gauss, Corey 11/14/2019 R05 Cough Gauss, Corey 10/20/2019 E03.9 Hypothyroidism, unspecified Gauss, Corey 10/20/2019 K21.9 Gastro-esophageal reflux disease without esophagitis Gauss , Corey 10/20/2019 F31.89 Other bipolar disorder Gauss, Corey 10/20/2019 F17.200 Nicotine dependence, unspecified, uncomplicated Gauss, Corey 10/20/2019 J44.9 Chronic obstructive pulmonary disease, unspecified Gauss, Corey 10/20/2019 K80.00 Calculus of gallbladder with acute cholecystitis Gauss, Corey without obstruction 07/21/2019 K21.9 Gastro-esophageal reflux disease without esophagitis Gauss , Corey 07/21/2019 E03.9 Hypothyroidism, unspecified Gauss, Corey 07/21/2019 F31.89 Other bipolar disorder Gauss, Corey 07/21/2019 F17.200 Nicotine dependence, unspecified, uncomplicated Gauss, Corey 07/21/2019 R06.02 Shortness of breath Gauss, Corey 07/21/2019 J44.9 Chronic obstructive pulmonary disease, unspecified Gauss, Corey 07/21/2019 K80.00 Calculus of gallbladder with acute cholecystitis Gauss, Corey without obstruction 07/21/2019 E78.2 Mixed hyperlipidemia Gauss, Corey 07/21/2019 Z23 Encounter for immunization Corey Sellers 06/24/2019 K21.9 Gastro-esophageal reflux disease without esophagitis Corey Sellers 06/24/2019 E03.9 Hypothyroidism, unspecified Joseph Sellresl 06/24/2019 F31.89 Other bipolar disorder Corey Sellers 06/24/2019 F17.200 Nicotine dependence, unspecified, uncomplicated Joseph Sellersl 06/24/2019 R06.02 Shortness of breath Marlo Corey 06/24/2019 J44.9 Chronic obstructive pulmonary disease, unspecified Marlo, Corey 06/24/2019 R05 Cough Joseph Sellersl 06/18/2019 R06.02 Shortness of breath Joseph Sellersl 06/18/2019 J44.9 Chronic obstructive pulmonary disease, unspecified Marlo, Corey 06/18/2019 R05 Corey Souza Plan of Treatment Future Appointment(s):02/05/2020 8:30 am - Nurse at Main [facility]6702/17/2020 10: 00 am - Corey Sellers at Main [facility]111/18/2019 - Corey SellersJ44.9 Chronic obstructive pulmonary disease, unspecifiedComments:Discussed importance of excersize and avoidance of all smoke. Enviromental factors that can spark exacerbations reviewed. The necessity of reporting any changes in condition, early intervention in exacerbations and proper useand the importance of compliance with medications. Reports if applicable of home care providers, and equipment suppliers and Respiratory Therapy reviewed.E03.9 Hypothyroidism, [id number] Gastro-esophageal reflux disease without esophagitisComments: Discussed role of diet and excersize and weight reduction and contribution of common exacerbating factors/ substances such as stress/fatigue/caffeine/nicotine /chocolate/ foods.Signs and symptoms of disease progression discussed as well as necessity to promptly report changes or worsening and the need for medication compliance. Periodic measurement and follow up for serum Magnesium levels while on PPI.F31.89 Other bipolar [id number] Nicotine dependence, unspecified, uncomplicatedComments:Discussed health effects and consequences of nicotine and tobacco. Discussed quitting strategies andaids to withdrawal including seminars, classes, hypnosis, medications. Offered encouragement to change and benefits to be expected in health overall and specific conditions that are effected. Literature and follow up planned.Discussed health effects and consequences of nicotine and tobacco. Discussed quitting strategies and aids to withdrawal including seminars, classes, hypnosis, medications. Offered encouragement to change and benefits to be expected in health overall and specific conditions that are effected. Literature and follow up planned. Discussion time less than 10 [id number] Calculus of gallbladder with acute cholecystitis without [id number] Encounter for general adult medical examination with abnormal findingsComments:DISCUSSED AGE APPROPRIATE RISK FACTORS AND SCREENING.E78.5 Hyperlipidemia, unspecifiedComments:Counselled on role of diet and excersize and importance to keep compliance with medication if prescribed and side effects. The importance of routine monitoring of blood lipids and liver tests to managetreatment and avoid side effects were discussed. Usual follow up is 3 months for LFT and Lipid profile. Patient education including dietary guidelines and materials provided. Functional Status Description No Information Available Mental Status Description No Information Available Referrals Description No Information Available
--- OUTSIDE RECORDS SUMMARY | 2020-01-16 03:14 | XMS REPORT | Continuity of Care Document ---
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 Problems Description No Information Available Social History [...] every night at Tablets bedtime as needed [place] Carbonate ER one tablet every Unknown 12 hours 450mg Tablets ER Fluoxetine HCL 1 by mouth every Unknown 40mg day Capsules Advil as needed Unknown 200mg Capsules Immunizations CPT Code Status Date Vaccine Lot # [id number] Given 07/21/2019 Influenza Virus (Quadrivalent)Splitvirus 3 [id number] Years Of Age And Older [address] Given 07/21/2019 Influenza Virus Vaccine, Quadrivalent, Split, [...] H/L Range Note General Health 11/14/2019 [facility] TSH 2.96 mIU/L Normal 0.40- 4.50 1 Panel [facility] [address] [place] [address] [phone] T4, Free 1.2 ng/dL Normal 0.8-1.8 CBC (Includes 11/14/2019 [facility] White 6.9 Thousand/uL Normal 3.8-10.8 Diff/PLT) [facility] [place] [address] Count Red Blood Cell Count 5.03 Million/uL Normal 4.20-5.80 Hemoglobin 14.5 g/dL Normal 13.2-17.1 Hematocrit 43.3 % Normal 38.5-50.0 MCV 86.1 fL Normal 80.0-100.0 MCH 28.8 pg Normal 27.0-33.0 MCHC 33.5 g/dL Normal 32.0-36.0 RDW 14.5 % Normal 11.0-15.0 Platelet Count 189 Thousand/uL Normal 140-400 MPV 10.2 fL Normal 7.5-12.5 Absolute Neutrophils 4602 cells/uL Normal 0297-0978 Absolute Lymphocytes 1504 cells/uL Normal 850-3900 Absolute Monocytes 366 cells/uL Normal 200-950 Absolute Eosinophils 380 cells/uL Normal 15-500 Absolute Basophils 48 cells/uL Normal 0-200 Neutrophils 66.7 % Normal 38-80 Lymphocytes 21.8 % Normal 15-49 Monocytes 5.3 % Normal 0-13 Eosinophils 5.5 % Normal 0-8 Basophils 0.7 % Normal 0-2 Comprehensive Metabolic 11/14/2019 [facility] Glucose 88 mg/dL Normal 65-99 2 Panel [address] [place] [address] [phone] Urea Nitrogen (BUN) 11 mg/dL Normal 7-25 Creatinine 1.20 mg/dL Normal 0.60-1.35 eGFR Non-Afr. Eritrean 80 mL/min/1.73m2 Normal > Or = 60 [...] U/L Normal 9-46 Lipid Panel, 11/14/2019 [facility] Cholesterol, Total 275 mg/dL High <200 Standard [address] [place] [address] [phone] HDL Cholesterol 44 mg/dL Normal >40 Triglycerides 578 mg/dL High <150 3 LDL-Cholesterol (SEE NOTE) mg/dL(calc) 4 Chol/HDLC Ratio 6.3 (calc) High <5.0 Non HDL Cholesterol 231 mg/dL(calc) High <130 5 Laboratory test 11/14/2019 [facility] [place] 0.9 mmol/L Normal 0.6 -1.2 finding [address] [place] [address] [phone] Enhanced PDF Report [id number] PDF IMAGE OFF General Health Panel [facility] [...] MPV 10.5 FL 7.5-12.5 Neutrophils,Absolute 5020 cells/L 1607-7993 Bands,Absolute PENDING Metamyelocytes,Absolute PENDING Myelocytes,Absolute PENDING Promyelocytes,Absolute [...] 1.9-3.7 A/G Ratio 2.2 1.0-2.5 Egfr Non-Afr. Eritrean 84 ML/MIN/1.73M2 > Or = 60 Egfr [...] LDL-C. Errol SS et al. DUSTY. 2013;310(19): 5310-3390 (http://education.BomTrip.com.[employer]/faq/JMD482) 5 Non-HDL level > or = 220 [...] TO MIRELLA MARTÍNEZ *FAX SENT REQUESTED TO [phone] 8 Relative blood cell counts (%) should [...] SPECIMEN. Procedures Date Code Description Status 11/14/2019 20348 Spirometry Graphic Record/Max Voluntary Vent Completed 06/24/2019 41131 PFT Evaluation Completed 06/18/2019 51179 Spirometry Graphic Record/Max Voluntary Vent Completed Medical Devices Description No Information Available Encounters Type Date Location Provider Dx Diagnosis Office Visit 11/18/2019 12:00p Main Office Croey Sellers J44.9 Chronic obstructive pulmonary disease, unspecified [...] reflux disease without esophagitis Gauss , Corey 11/18/2019 F31.89 Other bipolar disorder Gauss, Corey [...] Corey Sellers 06/24/2019 E03.9 Hypothyroidism, unspecified Joseph Sellersl 06/24/2019 F31.89 Other bipolar disorder Corey Sellers [...] Appointment(s):02/05/2020 8:30 am - Nurse at Main Qhzdlj0302/17/2020 10: 00 am - Corey Selelrs at Main Yfigju4311/18/2019 - Corey SellersJ44.9 Chronic obstructive pulmonary disease, unspecifiedComments:Discussed importance of excersize and avoidance of all smoke. Enviromental factors that can spark exacerbations reviewed. The necessity of reporting any changes in condition, early intervention in exacerbations and proper useand the importance of compliance with medications. Reports if applicable of home care providers, and equipment suppliers and Respiratory Therapy reviewed.E03.9 Hypothyroidism, mtmoovzjkwnY29.9 Gastro-esophageal reflux disease without esophagitisComments: Discussed role of diet and excersize and weight reduction and contribution of common exacerbating factors/ substances such as stress/fatigue/caffeine/nicotine /chocolate/ foods.Signs and symptoms of disease progression discussed as well as necessity to promptly report changes or worsening and the need for medication compliance. Periodic measurement and follow up for serum Magnesium levels while on PPI.F31.89 Other bipolar kiemwxivM59.200 Nicotine dependence, unspecified, uncomplicatedComments:Discussed health effects and [...] up planned. Discussion time less than 10 qqvohlhD28.00 Calculus of gallbladder with acute cholecystitis without pvgjggnewssH88.01 Encounter for general adult medical examination with [...]
--- OUTSIDE RECORDS SUMMARY | 2020-01-16 03:14 | XMS REPORT | Continuity of Care Document ---
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 No Information Available Social History [...] every night at Tablets bedtime as needed [place] Carbonate ER one tablet every Unknown 12 hours 450mg Tablets ER Fluoxetine HCL 1 by mouth every Unknown 40mg day Capsules Advil as needed Unknown 200mg Capsules Immunizations CPT Code Status Date Vaccine Lot # [id number] Given 07/21/2019 Influenza Virus (Quadrivalent)Splitvirus 3 [id number] Years Of Age And Older [address] Given 07/21/2019 Influenza Virus Vaccine, Quadrivalent, Split, [...] H/L Range Note General Health 11/14/2019 [facility] TSH 2.96 mIU/L Normal 0.40- 4.50 1 Panel [facility] [address] [place] [address] [phone] T4, Free 1.2 ng/dL Normal 0.8-1.8 CBC (Includes 11/14/2019 [facility] White 6.9 Thousand/uL Normal 3.8-10.8 Diff/PLT) [facility] [place] [address] Count Red Blood Cell Count 5.03 Million/uL Normal 4.20-5.80 Hemoglobin 14.5 g/dL Normal 13.2-17.1 Hematocrit 43.3 % Normal 38.5-50.0 MCV 86.1 fL Normal 80.0-100.0 MCH 28.8 pg Normal 27.0-33.0 MCHC 33.5 g/dL Normal 32.0-36.0 RDW 14.5 % Normal 11.0-15.0 Platelet Count 189 Thousand/uL Normal 140-400 MPV 10.2 fL Normal 7.5-12.5 Absolute Neutrophils 4602 cells/uL Normal 0508-1527 Absolute Lymphocytes 1504 cells/uL Normal 850-3900 Absolute Monocytes 366 cells/uL Normal 200-950 Absolute Eosinophils 380 cells/uL Normal 15-500 Absolute Basophils 48 cells/uL Normal 0-200 Neutrophils 66.7 % Normal 38-80 Lymphocytes 21.8 % Normal 15-49 Monocytes 5.3 % Normal 0-13 Eosinophils 5.5 % Normal 0-8 Basophils 0.7 % Normal 0-2 Comprehensive Metabolic 11/14/2019 [facility] Glucose 88 mg/dL Normal 65-99 2 Panel [address] [place] [address] [phone] Urea Nitrogen (BUN) 11 mg/dL Normal 7-25 Creatinine 1.20 mg/dL Normal 0.60-1.35 eGFR Non-Afr. Estonian 80 mL/min/1.73m2 Normal > Or = 60 [...] U/L Normal 9-46 Lipid Panel, 11/14/2019 [facility] Cholesterol, Total 275 mg/dL High <200 Standard [address] [place] [address] [phone] HDL Cholesterol 44 mg/dL Normal >40 Triglycerides 578 mg/dL High <150 3 LDL-Cholesterol (SEE NOTE) mg/dL(calc) 4 Chol/HDLC Ratio 6.3 (calc) High <5.0 Non HDL Cholesterol 231 mg/dL(calc) High <130 5 Laboratory test 11/14/2019 [facility] [place] 0.9 mmol/L Normal 0.6 -1.2 finding [address] [place] [address] [phone] Enhanced PDF Report [id number] PDF IMAGE OFF General Health Panel [facility] [...] MPV 10.5 FL 7.5-12.5 Neutrophils,Absolute 5020 cells/L 9297-4420 Bands,Absolute PENDING Metamyelocytes,Absolute PENDING Myelocytes,Absolute PENDING Promyelocytes,Absolute [...] 1.9-3.7 A/G Ratio 2.2 1.0-2.5 Egfr Non-Afr. Estonian 84 ML/MIN/1.73M2 > Or = 60 Egfr [...] LDL-C. Errol SS et al. DUSTY. 2013;310(19): 2971-5632 (http://education.[employer].Summly/faq/RSV852) 5 Non-HDL level > or = 220 [...] TO MIRELLA MARTÍNEZ *FAX SENT REQUESTED TO [phone] 8 Relative blood cell counts (%) should [...] SPECIMEN. Procedures Date Code Description Status 11/14/2019 04198 Spirometry Graphic Record/Max Voluntary Vent Completed 06/24/2019 18760 PFT Evaluation Completed 06/18/2019 29291 Spirometry Graphic Record/Max Voluntary Vent Completed Medical [...] Appointment(s):02/05/2020 8:30 am - Nurse at Main Gvzrzm5302/17/2020 10: 00 am - Corey Sellers at Main Octtmn9611/18/2019 - Corey SellersJ44.9 Chronic obstructive pulmonary disease, unspecifiedComments:Discussed importance of excersize and avoidance of all smoke. Enviromental factors that can spark exacerbations reviewed. The necessity of reporting any changes in condition, early intervention in exacerbations and proper useand the importance of compliance with medications. Reports if applicable of home care providers, and equipment suppliers and Respiratory Therapy reviewed.E03.9 Hypothyroidism, jtnujbbmnlkY02.9 Gastro-esophageal reflux disease without esophagitisComments: Discussed role of diet and excersize and weight reduction and contribution of common exacerbating factors/ substances such as stress/fatigue/caffeine/nicotine /chocolate/ foods.Signs and symptoms of disease progression discussed as well as necessity to promptly report changes or worsening and the need for medication compliance. Periodic measurement and follow up for serum Magnesium levels while on PPI.F31.89 Other bipolar anzanauxH89.200 Nicotine dependence, unspecified, uncomplicatedComments:Discussed health effects and [...] up planned. Discussion time less than 10 uxixiuhW96.00 Calculus of gallbladder with acute cholecystitis without gsnahwobwaeA80.01 Encounter for general adult medical examination with [...]
--- OUTSIDE RECORDS SUMMARY | 2020-01-16 03:14 | XMS REPORT | Continuity of Care Document ---
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40- 4.50 1 Panel [facility] [address] [place] [address] [phone] T4, Free 1.2 ng/dL Normal 0.8-1.8 CBC (Includes 11/14/2019 [facility] White 6.9 Thousand/uL Normal 3.8-10.8 Diff/PLT) [facility] [place] [address] Count Red Blood Cell Count 5.03 Million/uL Normal 4.20-5.80 Hemoglobin 14.5 g/dL Normal 13.2-17.1 Hematocrit 43.3 % Normal 38.5-50.0 MCV 86.1 fL Normal 80.0-100.0 MCH 28.8 pg Normal 27.0-33.0 MCHC 33.5 g/dL Normal 32.0-36.0 RDW 14.5 % Normal 11.0-15.0 Platelet Count 189 Thousand/uL Normal 140-400 MPV 10.2 fL Normal 7.5-12.5 Absolute Neutrophils 4602 cells/uL Normal 6184-1741 Absolute Lymphocytes 1504 cells/uL Normal 850-3900 Absolute Monocytes 366 cells/uL Normal 200-950 Absolute Eosinophils 380 cells/uL Normal 15-500 Absolute Basophils 48 cells/uL Normal 0-200 Neutrophils 66.7 % Normal 38-80 Lymphocytes 21.8 % Normal 15-49 Monocytes 5.3 % Normal 0-13 Eosinophils 5.5 % Normal 0-8 Basophils 0.7 % Normal 0-2 Comprehensive Metabolic 11/14/2019 [facility] Glucose 88 mg/dL Normal 65-99 2 Panel [address] [place] [address] [phone] Urea Nitrogen (BUN) 11 mg/dL Normal 7-25 Creatinine 1.20 mg/dL Normal 0.60-1.35 eGFR Non-Afr. Citizen Of [place] 80 mL/min/1.73m2 Normal > Or = 60 [...] U/L Normal 9-46 Lipid Panel, 11/14/2019 [facility] Cholesterol, Total 275 mg/dL High <200 Standard [address] [place] [address] [phone] HDL Cholesterol 44 mg/dL Normal >40 Triglycerides 578 mg/dL High <150 3 LDL-Cholesterol (SEE NOTE) mg/dL(calc) 4 Chol/HDLC Ratio 6.3 (calc) High <5.0 Non HDL Cholesterol 231 mg/dL(calc) High <130 5 Laboratory test 11/14/2019 [facility] [place] 0.9 mmol/L Normal 0.6 -1.2 finding [address] [place] [address] [phone] Enhanced PDF Report [id number] PDF IMAGE OFF General Health Panel [facility] [...] MPV 10.5 FL 7.5-12.5 Neutrophils,Absolute 5020 cells/L 9810-5001 Bands,Absolute PENDING Metamyelocytes,Absolute PENDING Myelocytes,Absolute PENDING Promyelocytes,Absolute [...] 1.9-3.7 A/G Ratio 2.2 1.0-2.5 Egfr Non-Afr. Citizen Of [place] 84 ML/MIN/1.73M2 > Or = 60 Egfr [...] LDL-C. Errol SS et al. DUSTY. 2013;310(19): 3209-7293 (http://education.[employer]faq/YHG082) 5 Non-HDL level > or = 220 [...] TO MIRELLA MARTÍNEZ *FAX SENT REQUESTED TO [phone] 8 Relative blood cell counts (%) should [...] SPECIMEN. Procedures Date Code Description Status 11/14/2019 60217 Spirometry Graphic Record/Max Voluntary Vent Completed 06/24/2019 09714 PFT Evaluation Completed 06/18/2019 22073 Spirometry Graphic Record/Max Voluntary Vent Completed Medical [...] Appointment(s):02/05/2020 8:30 am - Nurse at Main Kdwbpc1202/17/2020 10: 00 am - Corey Sellers at Main Gejehm8411/18/2019 - Corey SellersJ44.9 Chronic obstructive pulmonary disease, unspecifiedComments:Discussed importance of excersize and avoidance of all smoke. Enviromental factors that can spark exacerbations reviewed. The necessity of reporting any changes in condition, early intervention in exacerbations and proper useand the importance of compliance with medications. Reports if applicable of home care providers, and equipment suppliers and Respiratory Therapy reviewed.E03.9 Hypothyroidism, jgnkoukxjcwI40.9 Gastro-esophageal reflux disease without esophagitisComments: Discussed role of diet and excersize and weight reduction and contribution of common exacerbating factors/ substances such as stress/fatigue/caffeine/nicotine /chocolate/ foods.Signs and symptoms of disease progression discussed as well as necessity to promptly report changes or worsening and the need for medication compliance. Periodic measurement and follow up for serum Magnesium levels while on PPI.F31.89 Other bipolar ymntgcgaH08.200 Nicotine dependence, unspecified, uncomplicatedComments:Discussed health effects and [...] up planned. Discussion time less than 10 hcitohkZ41.00 Calculus of gallbladder with acute cholecystitis without gsqkfvxxmrpY09.01 Encounter for general adult medical examination with [...]
--- OUTSIDE RECORDS SUMMARY | 2020-01-16 03:14 | XMS REPORT | Continuity of Care Document ---
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 No Information Available Social History [...] every night at Tablets bedtime as needed [place] Carbonate ER one tablet every Unknown 12 hours 450mg Tablets ER Fluoxetine HCL 1 by mouth every Unknown 40mg day Capsules Advil as needed Unknown 200mg Capsules Immunizations CPT Code Status Date Vaccine Lot # [id number] Given 07/21/2019 Influenza Virus (Quadrivalent)Splitvirus 3 [id number] Years Of Age And Older [address] Given 07/21/2019 Influenza Virus Vaccine, Quadrivalent, Split, [...] H/L Range Note General Health 11/14/2019 [facility] TSH 2.96 mIU/L Normal 0.40- 4.50 1 Panel [facility] [address] [place] [address] [phone] T4, Free 1.2 ng/dL Normal 0.8-1.8 CBC (Includes 11/14/2019 [facility] White 6.9 Thousand/uL Normal 3.8-10.8 Diff/PLT) [facility] [place] [address] Count Red Blood Cell Count 5.03 Million/uL Normal 4.20-5.80 Hemoglobin 14.5 g/dL Normal 13.2-17.1 Hematocrit 43.3 % Normal 38.5-50.0 MCV 86.1 fL Normal 80.0-100.0 MCH 28.8 pg Normal 27.0-33.0 MCHC 33.5 g/dL Normal 32.0-36.0 RDW 14.5 % Normal 11.0-15.0 Platelet Count 189 Thousand/uL Normal 140-400 MPV 10.2 fL Normal 7.5-12.5 Absolute Neutrophils 4602 cells/uL Normal 6493-6465 Absolute Lymphocytes 1504 cells/uL Normal 850-3900 Absolute Monocytes 366 cells/uL Normal 200-950 Absolute Eosinophils 380 cells/uL Normal 15-500 Absolute Basophils 48 cells/uL Normal 0-200 Neutrophils 66.7 % Normal 38-80 Lymphocytes 21.8 % Normal 15-49 Monocytes 5.3 % Normal 0-13 Eosinophils 5.5 % Normal 0-8 Basophils 0.7 % Normal 0-2 Comprehensive Metabolic 11/14/2019 [facility] Glucose 88 mg/dL Normal 65-99 2 Panel [address] [place] [address] [phone] Urea Nitrogen (BUN) 11 mg/dL Normal 7-25 Creatinine 1.20 mg/dL Normal 0.60-1.35 eGFR Non-Afr. [place]i 80 mL/min/1.73m2 Normal > Or = 60 [...] U/L Normal 9-46 Lipid Panel, 11/14/2019 [facility] Cholesterol, Total 275 mg/dL High <200 Standard [address] [place] [address] [phone] HDL Cholesterol 44 mg/dL Normal >40 Triglycerides 578 mg/dL High <150 3 LDL-Cholesterol (SEE NOTE) mg/dL(calc) 4 Chol/HDLC Ratio 6.3 (calc) High <5.0 Non HDL Cholesterol 231 mg/dL(calc) High <130 5 Laboratory test 11/14/2019 [facility] [place] 0.9 mmol/L Normal 0.6 -1.2 finding [address] [place] [address] [phone] Enhanced PDF Report [id number] PDF IMAGE OFF General Health Panel [facility] [...] MPV 10.5 FL 7.5-12.5 Neutrophils,Absolute 5020 cells/L 2671-1212 Bands,Absolute PENDING Metamyelocytes,Absolute PENDING Myelocytes,Absolute PENDING Promyelocytes,Absolute [...] 1.9-3.7 A/G Ratio 2.2 1.0-2.5 Egfr Non-Afr. Omani 84 ML/MIN/1.73M2 > Or = 60 Egfr [...] factors. LDL-C is now calculated using the rErol-Staples calculation, which is a validated novel method providing better accuracy than the Friedewald equation in the estimation of LDL-C. Errol SS et al. DUSTY. 2013;310(19): 7714-6822 (http://education.Syn[employer]x.Urban [employer]rics/faq/XCO452) 5 Non-HDL level > or = 220 [...] TO MIRELLA MARTÍNEZ *FAX SENT REQUESTED TO [phone] 8 Relative blood cell counts (%) should [...] SPECIMEN. Procedures Date Code Description Status 11/14/2019 26584 Spirometry Graphic Record/Max Voluntary Vent Completed 06/24/2019 66773 PFT Evaluation Completed 06/18/2019 31346 Spirometry Graphic Record/Max Voluntary Vent Completed Medical [...] Appointment(s):02/05/2020 8:30 am - Nurse at Main Hedgtg2502/17/2020 10: 00 am - Corey Sellers at Main Ixjjec0811/18/2019 - Corey SellersJ44.9 Chronic obstructive pulmonary disease, unspecifiedComments:Discussed importance of excersize and avoidance of all smoke. Enviromental factors that can spark exacerbations reviewed. The necessity of reporting any changes in condition, early intervention in exacerbations and proper useand the importance of compliance with medications. Reports if applicable of home care providers, and equipment suppliers and Respiratory Therapy reviewed.E03.9 Hypothyroidism, krpnrscoxvxX51.9 Gastro-esophageal reflux disease without esophagitisComments: Discussed role of diet and excersize and weight reduction and contribution of common exacerbating factors/ substances such as stress/fatigue/caffeine/nicotine /chocolate/ foods.Signs and symptoms of disease progression discussed as well as necessity to promptly report changes or worsening and the need for medication compliance. Periodic measurement and follow up for serum Magnesium levels while on PPI.F31.89 Other bipolar tmwwjqgiP78.200 Nicotine dependence, unspecified, uncomplicatedComments:Discussed health effects and [...] up planned. Discussion time less than 10 djzyrbuJ04.00 Calculus of gallbladder with acute cholecystitis without nwswoytmykuL27.01 Encounter for general adult medical examination with [...]
--- OUTSIDE RECORDS SUMMARY | 2020-01-16 03:15 | XMS REPORT | Continuity of Care Document ---
:1990 External Reference #:[id number] Author Name Corey Sellers (transmitted by agent of provider Tasia Tsai) Address [address] [place] [address] Care Team Providers Name Role Phone Corey Sellers MD - Internal Medicine Care Team Information Curatorial Assistant [phone] Problems Description No Information Available Social History [...] every night at Tablets bedtime as needed [place] Carbonate ER one tablet every Unknown 12 hours 450mg Tablets ER Fluoxetine HCL 1 by mouth every Unknown 40mg day Capsules Advil as needed Unknown 200mg Capsules Immunizations CPT Code Status Date Vaccine Lot # [id number] Given 07/21/2019 Influenza Virus (Quadrivalent)Splitvirus 3 [id number] Years Of Age And Older 18858 Given 07/21/2019 Influenza Virus Vaccine, Quadrivalent, Split, [...] H/L Range Note General Health 11/14/2019 [facility] TSH 2.96 mIU/L Normal 0.40- 4.50 1 Panel [facility] [address] [place] [address] [phone] T4, Free 1.2 ng/dL Normal 0.8-1.8 CBC (Includes 11/14/2019 [facility] White 6.9 Thousand/uL Normal 3.8-10.8 Diff/PLT) 6 [facility] [place] [address] Count Red Blood Cell Count 5.03 Million/uL Normal 4.20-5.80 Hemoglobin 14.5 g/dL Normal 13.2-17.1 Hematocrit 43.3 % Normal 38.5-50.0 MCV 86.1 fL Normal 80.0-100.0 MCH 28.8 pg Normal 27.0-33.0 MCHC 33.5 g/dL Normal 32.0-36.0 RDW 14.5 % Normal 11.0-15.0 Platelet Count 189 Thousand/uL Normal 140-400 MPV 10.2 fL Normal 7.5-12.5 Absolute Neutrophils 4602 cells/uL Normal 2377-9943 Absolute Lymphocytes 1504 cells/uL Normal 850-3900 Absolute Monocytes 366 cells/uL Normal 200-950 Absolute Eosinophils 380 cells/uL Normal 15-500 Absolute Basophils 48 cells/uL Normal 0-200 Neutrophils 66.7 % Normal 38-80 Lymphocytes 21.8 % Normal 15-49 Monocytes 5.3 % Normal 0-13 Eosinophils 5.5 % Normal 0-8 Basophils 0.7 % Normal 0-2 Comprehensive Metabolic 11/14/2019 [facility] Glucose 88 mg/dL Normal 65-99 2 Panel [address] [place] [address] [phone] Urea Nitrogen (BUN) 11 mg/dL Normal 7-25 Creatinine 1.20 mg/dL Normal 0.60-1.35 eGFR Non-Afr. Citizen Of [place] 80 mL/min/1.73m2 Normal > Or = 60 [...] U/L Normal 9-46 Lipid Panel, 11/14/2019 [facility] Cholesterol, Total 275 mg/dL High <200 Standard [address] [place] [address] [phone] HDL Cholesterol 44 mg/dL Normal >40 Triglycerides 578 mg/dL High <150 3 LDL-Cholesterol (SEE NOTE) mg/dL(calc) 4 Chol/HDLC Ratio 6.3 (calc) High <5.0 Non HDL Cholesterol 231 mg/dL(calc) High <130 5 Laboratory test 11/14/2019 [facility] [place] 0.9 mmol/L Normal 0.6 -1.2 finding [address] [place] [address] [phone] Enhanced PDF Report [id number] PDF IMAGE OFF General Health Panel [facility] [...] MPV 10.5 FL 7.5-12.5 Neutrophils,Absolute 5020 cells/L 1956-3293 Bands,Absolute PENDING Metamyelocytes,Absolute PENDING Myelocytes,Absolute PENDING Promyelocytes,Absolute [...] Ratio 2.2 1.0-2.5 Egfr Non-Afr. Citizen [place] 84 ML/MIN/1.73M2 > Or = 60 Egfr [...] LDL-C. Errol SS et al. DUSTY. 2013;310(19): 4607-2533 (http://education.Youku.[employer]/faq/EIO311) 5 Non-HDL level > or = 220 [...] TO MIRELLA MARTÍNEZ *FAX SENT REQUESTED TO [phone] Relative blood cell counts (%) should [...] SPECIMEN. Procedures Date Code Description Status 11/14/2019 24146 Spirometry Graphic Record/Max Voluntary Vent Completed 06/24/2019 86389 PFT Evaluation Completed 06/18/2019 94399 Spirometry Graphic Record/Max Voluntary Vent Completed Medical [...] Appointment(s):02/05/2020 8:30 am - Nurse at Main Puzepi3402/17/2020 10: 00 am - Corey Sellers at Main Tbbwuh1511/18/2019 - Corey SellersJ44.9 Chronic obstructive pulmonary disease, unspecifiedComments:Discussed importance of excersize and avoidance of all smoke. Enviromental factors that can spark exacerbations reviewed. The necessity of reporting any changes in condition, early intervention in exacerbations and proper useand the importance of compliance with medications. Reports if applicable of home care providers, and equipment suppliers and Respiratory Therapy reviewed.E03.9 Hypothyroidism, xrcwbrirborM65.9 Gastro-esophageal reflux disease without esophagitisComments: Discussed role of diet and excersize and weight reduction and contribution of common exacerbating factors/ substances such as stress/fatigue/caffeine/nicotine /chocolate/ foods.Signs and symptoms of disease progression discussed as well as necessity to promptly report changes or worsening and the need for medication compliance. Periodic measurement and follow up for serum Magnesium levels while on PPI.F31.89 Other bipolar yrgzaqinH55.200 Nicotine dependence, unspecified, uncomplicatedComments:Discussed health effects and [...] up planned. Discussion time less than 10 flxrqpwU05.00 Calculus of gallbladder with acute cholecystitis without hbqiaswkofcR81.01 Encounter for general adult medical examination with [...]
--- OUTSIDE RECORDS SUMMARY | 2020-01-16 03:15 | XMS REPORT | Continuity of Care Document ---
:1990 External Reference #:[id number] Author Name Corey Sellers (transmitted by agent of provider Beatrice Ho) Address [address] [place] [address] Care Team Providers Name Role Phone Corey Sellers MD - Internal Medicine Care Team Information Cycle Counter [phone] Problems Description No Information Available Social History [...] every night at Tablets bedtime as needed [place] Carbonate ER one tablet every Unknown 12 hours 450mg Tablets ER Fluoxetine HCL 1 by mouth every Unknown 40mg day Capsules Advil as needed Unknown 200mg Capsules Immunizations CPT Code Status Date Vaccine Lot # [id number] Given 07/21/2019 Influenza Virus (Quadrivalent)Splitvirus 3 [id number] Years Of Age And Older [address] Given 07/21/2019 Influenza Virus Vaccine, Quadrivalent, Split, Preservative Free Vital Signs Date Vital Result Comment 10/20/2019 12:14pm BP Systolic 126 mmHg BP Diastolic 74 mmHg Heart Rate 96 /min Height 72 inches 6'0" Weight 212.00 lb BMI (Body Mass Index) 28.7 kg/m2 O2 % BldC Oximetry 97 % 07/21/2019 10:32am BP Systolic 124 mmHg BP Diastolic 78 mmHg Heart Rate 100 /min Height 72 inches 6'0" Weight 196.00 lb BMI (Body Mass Index) 26.6 kg/m2 O2 % BldC Oximetry 97 % Results Test Acquired Date Facility Test Result H/L Range Note General Health 11/14/2019 [facility] TSH 2.96 mIU/L Normal 0.40- 4.50 1 [facility] [address] [place] [address] [phone] T4, Free 1.2 ng/dL Normal 0.8-1.8 CBC (Includes 11/14/2019 [facility] White 6.9 Thousand/uL Normal 3.8-10.8 Diff/PLT) [address] [facility] [place] [address] Count Red Blood Cell Count 5.03 Million/uL Normal 4.20-5.80 Hemoglobin 14.5 g/dL Normal 13.2-17.1 Hematocrit 43.3 % Normal 38.5-50.0 MCV 86.1 fL Normal 80.0-100.0 MCH 28.8 pg Normal 27.0-33.0 MCHC 33.5 g/dL Normal 32.0-36.0 RDW 14.5 % Normal 11.0-15.0 Platelet Count 189 Thousand/uL Normal 140-400 MPV 10.2 fL Normal 7.5-12.5 Absolute Neutrophils 4602 cells/uL Normal 3789-4356 Absolute Lymphocytes 1504 cells/uL Normal 850-3900 Absolute Monocytes 366 cells/uL Normal 200-950 Absolute Eosinophils 380 cells/uL Normal 15-500 Absolute Basophils 48 cells/uL Normal 0-200 Neutrophils 66.7 % Normal 38-80 Lymphocytes 21.8 % Normal 15-49 Monocytes 5.3 % Normal 0-13 Eosinophils 5.5 % Normal 0-8 Basophils 0.7 % Normal 0-2 Comprehensive Metabolic 11/14/2019 [facility] Glucose 88 mg/dL Normal 65-99 2 Panel [address] [place] [address] [phone] Urea Nitrogen (BUN) 11 mg/dL Normal 7-25 Creatinine 1.20 mg/dL Normal 0.60-1.35 eGFR Non-Afr. [place] 80 mL/min/1.73m2 Normal > Or = 60 [...] U/L Normal 9-46 Lipid Panel, 11/14/2019 [facility] Cholesterol, Total 275 mg/dL High <200 Standard [address] [place] [address] [phone] HDL Cholesterol 44 mg/dL Normal >40 Triglycerides 578 mg/dL High <150 3 LDL-Cholesterol (SEE NOTE) mg/dL(calc) 4 Chol/HDLC Ratio 6.3 (calc) High <5.0 Non HDL Cholesterol 231 mg/dL(calc) High <130 5 Laboratory test 11/14/2019 [facility] Amber 0.9 mmol/L Normal 0.6 -1.2 finding [address] [place] [address] [phone] Enhanced PDF Report [id number] PDF IMAGE OFF General Health Panel [facility] [...] MPV 10.5 FL 7.5-12.5 Neutrophils,Absolute 5020 cells/L 1825-4947 Bands,Absolute PENDING Metamyelocytes,Absolute PENDING Myelocytes,Absolute PENDING Promyelocytes,Absolute [...] 1.9-3.7 A/G Ratio 2.2 1.0-2.5 Egfr Non-Afr. [place] 84 ML/MIN/1.73M2 > Or = 60 Egfr [...] LDL-C. Errol SS et al. DUSTY. 2013;310(19): 3512-9835 (http://education.[employer]/faq/OJV906) 5 Non-HDL level > or = 220 [...] TO MIRELLA MARTÍNEZ *FAX SENT REQUESTED TO [phone] 8 Relative blood cell counts (%) should be compared with absolute cell counts (cells/mcL). Relative counts may not be clinically meaningful if the absolute count of one or more cell type is decreased. Reference ranges for relative cell counts derived from: A Manual of Laboratory and Diagnostics Tests, 9th Ed, Radha Hansel & Espinoza, 2015. Pediatric Reference Intervals, 7th Ed, [employer], 2011. 9 Reference range for high altitude clients: 18-30 mmol/L 10 GLUCOSE REFERENCE RANGE BASED ON FASTING SPECIMEN. Procedures Date Code Description Status 11/14/2019 59069 Spirometry Graphic Record/Max Voluntary Vent Completed 06/24/2019 95446 PFT Evaluation Completed 06/18/2019 07875 Spirometry Graphic Record/Max Voluntary Vent Completed Medical Devices Description No Information Available Encounters Type Date Location Provider Dx Diagnosis Office Visit 10/20/2019 11:45a Main Office Corey [...] R05 Cough Assessments Date Code Description Provider 11/14/2019 R06.02 Shortness of breath Corey Sellers 11/14/2019 J44.9 Chronic obstructive pulmonary disease, unspecified Gauss, Corey 11/14/2019 R05 Cough Marlo, Corey 10/20/2019 E03.9 Hypothyroidism, unspecified Gauss, Corey [...] Corey 07/21/2019 R06.02 Shortness of breath Gauss, [facility] 07/21/2019 J44.9 Chronic obstructive pulmonary disease, unspecified Gauss, [facility] 07/21/2019 K80.00 Calculus of gallbladder with acute cholecystitis Gauss, Corey without obstruction 07/21/2019 E78.2 Mixed hyperlipidemia Gauss, [facility] 07/21/2019 Z23 Encounter for immunization Gauss, [facility] 06/24/2019 K21.9 Gastro-esophageal reflux disease without esophagitis Gauss , Corey 06/24/2019 E03.9 Hypothyroidism, unspecified Gauss, [facility] 06/24/2019 F31.89 Other bipolar disorder Gauss, [facility] 06/24/2019 F17.200 Nicotine dependence, unspecified, uncomplicated Gauss, [facility] 06/24/2019 R06.02 Shortness of breath Gauss, Corey 06/24/2019 J44.9 Chronic obstructive pulmonary disease, unspecified Gauss, Corey 06/24/2019 R05 Cough Gauss, Corey 06/18/2019 R06.02 Shortness of breath Gauss, Corey 06/18/2019 J44.9 Chronic obstructive pulmonary disease, unspecified Gauss, Corey 06/18/2019 R05 Cough Gauss, [place] Plan of Treatment 10/20/2019 - Aceog JosephlE03.9 Hypothyroidism, zizhmjtkftzM19.9 Gastro- esophageal reflux disease without esophagitisComments:Discussed role of diet and excersize and weight reduction and contribution of common exacerbating factors/ substances such as stress/fatigue/caffeine/nicotine/chocolate/ foods.Signs and symptoms of disease progression discussed as well as necessity to promptly report changes or worsening and the need for medication compliance. Periodic measurement and follow up for serum Magnesium levels while on PPI.F31.89 Other bipolar cxzjoaarM78.200 Nicotine dependence, unspecified, uncomplicatedComments:Discussed health effects and consequences of nicotine and tobacco. Discussed quitting strategies andaids to withdrawal including seminars , classes, hypnosis, medications. Offered encouragement to change [...] up planned. Discussion time less than 10 hgtdvzxB90.9 Chronic obstructive pulmonary disease, unspecifiedComments: Discussed importance of excersize and avoidance of all smoke. Enviromental factors that can spark exacerbations reviewed. The necessity of reporting any changes in condition, early intervention in exacerbations and proper useand the importance of compliance with medications. Reports if applicable of home care providers, and equipment suppliers and Respiratory Therapy reviewed.K80.00 Calculus of gallbladder with acute cholecystitis without obstruction Functional Status Description No Information Available Mental Status Description No Information Available Referrals Description No Information Available
--- NOTE | 2020-01-16 03:36 | ED ---
Substance Abuse/Use - HPI Summary HPI Summary: 29 year old M arriving via private car to [facility] accompanied by mother requesting substance abuse resources and treatment. Hx substance abuse including marijuana, cocaine, prescription medications 6 years ago. He was sober for 5.5 years until he relapsed in Jun 2019. Hx ETOH abuse. He drinks vodka daily. Last drink today was 0000. He has never received rehab. He lives in [facility] with his parents. Patient had a panic attack starting 1900 yesterday 01/14. He developed left sided chest pain, sharp chest tightness, heart palpitations. He took a dose of clonazepam. Hx bipolar disorder I. He additionally complains of worsening bloody stools over the last 3-4 months. The patient rates the pain 3/10 in severity. Symptoms aggravated by nothing. Symptoms alleviated by nothing. Medications reviewed. Allergies noted. - History Of Current Complaint Chief Complaint: EDSubstanceAbuse Stated Complaint: SUBSTANCE ABUSE PER PT Hx Obtained From: Patient Onset/Duration of Drug/ETOH Abuse: Weeks - Jun 2019 Timing Of Abuse: Daily Severity Currently: Mild Aggravating Factor(s): Nothing Alleviating Factor(s): Nothing Associated Signs And Symptoms: Other: - left sided chest pain, sharp chest tightness, heart palpitations - Allergies/Home Medications Allergies/Adverse Reactions: Allergies Allergy/AdvReac Type Severity Reaction Status Date / Time No Known Allergies Allergy Verified 01/16/20 03:29 Home Medications: Home Medications FLUoxetine CAP* [PROzac CAP*] 20 mg PO DAILY 04/23/19 [History Confirmed ] Levothyroxine TAB* [Synthroid TAB*] 112 mcg PO DAILY 04/23/19 [History Confirmed 01/16/20] [place] Carbonate ER TAB* 450 mg PO BID 04/23/19 [History Confirmed 01/16/20] QUEtiapine TAB* [Seroquel 300 MG TAB*] 600 mg PO QPM 04/23/19 [History Confirmed 01/16/20] clonazePAM TAB(*) [KlonoPIN TAB(*)] 2 mg PO TID PRN 04/23/19 [History Confirmed 01/16/20] Omeprazole 40 mg PO DAILY 07/07/19 [History Confirmed 01/16/20] Atorvastatin* 20 mg PO DAILY 01/16/20 [History Confirmed 01/16/20] Latuda 20 mg PO DAILY 01/16/20 [History Confirmed 01/16/20] PMH/Surg Hx/FS Hx/Imm Hx Endocrine/Hematology History: Denies: Hx Anticoagulant Therapy Respiratory History: Denies: Hx Asthma Psychiatric History: Reports: Hx Depression, Hx Bipolar Disorder, Hx Substance Abuse - ETOH, cocaine, marijuana, prescription medications - Surgical History Surgery Procedure, Year, and Place: cholecystecomy 02/2019 Infectious Disease History: No Infectious Disease History: Denies: Traveled Outside the [place] in Last 30 Days - Family History Known Family History: Negative: Diabetes - Social History Alcohol Use: Daily Alcohol Amount: vodka Hx Substance Use: Yes Substance Use Type: Reports: Cocaine, Marijuana, Prescribed Hx Tobacco Use: Yes Smoking Status (MU): Heavy Every Day Tobacco Smoker Type: Cigarettes Amount Used/How Often: 1/2 ppd Review of Systems Positive: Palpitations, Chest Pain, Other - chest tightness Positive: Other - panic attack All Other Systems Reviewed And Are Negative: Yes Physical Exam - Summary Physical Exam Summary: Appearance: Well-appearing, Well-nourished, lying in bed comfortably Skin: Warm, dry, no obvious rash Eyes: sclera anicteric, no conjunctival pallor HENT: mucous membranes moist, pharynx appears normal Neck: Supple, nontender Respiratory: Clear to auscultation, no signs of respiratory distress Cardiovascular: Normal S1, S2. No murmurs. Normal distal pulses in tibial and radial bilaterally. Abdomen: Soft, nontender, normal active bowel sounds present Musculoskeletal: Normal, Strength/ROM Intact Neurological: A&Ox3, awake and alert, mentation is normal, speech is fluent and appropriate Psychiatric: affect is normal, does not appear anxious or depressed Triage Information Reviewed: Yes Vital Signs On Initial Exam: Initial Vitals Temp Pulse Resp BP Pulse Ox 97.9 F 82 20 132/99 99 01/16/20 03:05 01/16/20 03:05 01/16/20 03:05 01/16/20 03:05 01/16/20 03:05 Vital Signs Reviewed: Yes Procedures - Sedation Patient Received Moderate/Deep Sedation with Procedure: No Diagnostics - Vital Signs Vital Signs Temp Pulse Resp BP Pulse Ox 01/16/20 03:22 84 148/100 98 01/16/20 03:05 97.9 F 82 20 132/99 99 - Laboratory Result Diagrams: 01/16/20 04:10 01/16/20 04:10 Lab Statement: Any lab studies that have been ordered have been reviewed, and results considered in the medical decision making process. - EKG 0419 Cardiac Rate: NL - 76 BPM EKG Rhythm: Sinus Rhythm Summary of EKG Findings: Probable left ventricular hypertrophy. Nonspecific T abnormalities in inferior leads. ED physician has reviewed and interpreted this EKG. Course/Dx - Course Course Of Treatment: 29 y/o M with hx substance abuse requests resources and treatment. Patient had been sober for 5.5 years until he relapsed in Jun 2019. He drinks vodka daily. He has never received rehab. He lives in [facility] with his parents. Patient had a panic attack starting 1900 yesterday 01/14. He developed left sided chest pain, sharp chest tightness, heart palpitations. He took a dose of clonazepam. Hx bipolar disorder I. Physical exam unremarkable. Bloodwork results with no significant abnormalities. Alcohol 82. An EKG shows NSR 76 BPM. Probable left ventricular hypertrophy. Nonspecific T abnormalities in inferior leads. He additionally complains of worsening bloody stools over the last 3-4 months. He had a picture of his stools on his phone which did not look like blood. The patient was given referrals to alcohol and drug counseling. He was advised to go there today and get help with alcohol rehab. Patient will be discharged with follow up from resources given to him today. - Diagnoses Provider Diagnoses: Alcohol abuse Discharge ED - Sign-Out/Discharge Documenting (check all that apply): Patient Departure - Discharge Plan Condition: Good Disposition: HOME Patient Education Materials: Abuse of Alcohol (ED) Referrals: [id number] [Outside] Corey Sellers MD [Primary Care Provider] - Additional Instructions: The screening lab studies and EKG did not demonstrate any worrisome findings, and for the purposes of any proposed treatment of your substance problem I can say you are medically cleared. We have given you a copy of your lab work. I would encourage you to go to the [facility], they are very well versed in steering people towards appropriate treatment. - Billing Disposition and Condition Condition: GOOD Disposition: Home - Attestation Statements Document Initiated by Scribe: Yes Documenting Scribe: Anne Marie Aguilar Provider For Whom Scribe is Documenting (Include Credential): MD Aury Dickinson Attestation: I, Anne Marie Aguilar, scribed for Casimiro Grant MD on 01/20/20 at 0615. Scribe Documentation Reviewed: Yes Provider Attestation: The documentation as recorded by the scribeAnne Marie accurately reflects the service I personally performed and the decisions made by me, Casimiro Grant MD Status of Scribe Document: Viewed
[2020-01-16 04:22] LABS: ABS Eosinophils 0.1 10^3/ul (0-0.6); ABS Lymphocytes 1.1 10^3/ul (1.0-4.8); ABS Monocytes 0.5 10^3/ul (0-0.8); ABS Neutrophils 4.4 10^3/ul (1.5-7.7); Eosinophil % 1.8 %; Hematocrit 42 % (42-52); Hemoglobin 14.3 g/dL (14.0-18.0); Lymphocyte % 18.1 %; Mean Corpuscular HGB Conc 34 g/dL (31-36); Mean Corpuscular Hemoglobin 30 pg (27-31); Mean Corpuscular Volume 88 fL (80-94); Mean Platelet Volume 7.1 fL (7.4-10.4); Nucleated Red Blood Cells % 0.1; Platelet Count 152 10^3/uL (150-450); Red Blood Count 4.76 10^6 /uL (4.18-5.48); Red Cell Distribution Width 16 % (10-15); White Blood Count 6.2 10^3/uL (3.5-10.8)
[2020-01-16 04:37] LABS: Albumin 4.3 g/dL (3.2-5.2); Albumin/Globulin Ratio 1.7 (1-3); BUN/Creatinine Ratio 7.3 (8-20); EGFR African American 95.5 (>60); EGFR Non-African American 78.9 (>60); Globulin 2.5 g/dL (2-4); Total Bilirubin 0.5 mg/dL (0.2-1.0); Total Protein 6.8 g/dL (6.4-8.9)
[2020-01-16 05:01] LABS: TSH (Thyroid Stimulating Horm) 2.76 mcIU/mL (0.34-5.60)
[2020-01-16 05:19] VITALS: BP 133/96
[2020-01-16 05:19] LABS: Potassium 3.6 mmol/L (3.5-5.0)
== END 2020-01-16 05:10 | disposition home or self-care (01) ==
LOC: ED 03:03
DX: F10.10 Alcohol abuse, uncomplicated (principal); F31.9 Bipolar disorder, unspecified; E03.9 Hypothyroidism, unspecified; F17.210 Nicotine dependence, cigarettes, uncomplicated; Z90.49 Acquired absence of other specified parts of digestive tract; Z79.890 Hormone replacement therapy; Z79.899 Other long term (current) drug therapy
CPT/HCPCS: 36415; 80053; 80320; 84443; 84484; 85025; 93005; 99283; G0480

== ENCOUNTER 2020-01-20 12:54 | Emergency (ER) | payer OTHER ==
[2020-01-20 13:02] VITALS: BP 146/103
== END 2020-01-20 14:31 | disposition left against medical advice (07) ==
LOC: ED 12:54
DX: Z00.8 Encounter for other general examination (principal); Z53.21 Procedure and treatment not carried out due to patient leaving prior to being seen by health care provider
CPT/HCPCS: 99282